=== PATIENT | female | born 1995 | race Caucasian/White ===

== ENCOUNTER 2016-07-24 14:35 | Inpatient (IN) | payer BC ==
[~2016-07-24] VITALS: Ht 161.3 cm; Wt 63.3 kg
[2016-07-24] MEDS ORDERED: BCPILLS PO (14:53)
[2016-07-24] MEDS ORDERED: ALBUT/IPRATROP 3MG/0.5MG NEB 3 ML VIAL INH STA (15:20)
[2016-07-24] MEDS ORDERED: SODIUM CHLORIDE 0.9% 1000ML 2,000 ML IV STA (15:20)
[2016-07-24] MEDS ORDERED: KETOROLAC TROMETHAMINE 30 MG/ML VIAL IV STA (15:20)
[2016-07-24] MEDS ORDERED: HYDROCODONE/HOMATROPINE SYRUP 5MG/1.5MG 5ML UDP PO STA (15:20)
[2016-07-24 16:04] LABS: BASO % 0.3 %; BASO ABS # 0.02 K/uL (0-0.2); COMPLETE YES; EOS % 0.5 %; IG% 0.3 %; LYMPH % 12.9 %; LYMPH ABS # 0.95 K/uL (1.2-3.4); MEAN CELL VOLUME 88.2 fL (80-100); MEAN CORPUSCULAR HEMOGLOBIN 29.9 pg (25-34); MEAN CORPUSCULAR HGB CONC 33.8 g/dl (32-36); MEAN PLATELET VOLUME 10.3 fL (7.4-10.4); MONO % 12.6 %; NEUT % 73.4 %; PLATELET COUNT 254 K/uL (130-400); RED BLOOD COUNT 4.42 M/uL (4.2-5.4); WHITE BLOOD COUNT 7.36 K/uL (4.8-10.8)
[2016-07-24] MEDS ORDERED: BENZ100C6 PO (16:22)
[2016-07-24] MEDS ORDERED: CLR10 PO (16:22)
[2016-07-24 16:27] LABS: BUN/CREATININE RATIO 9.6 (10-20); CALCIUM 9.4 mg/dl (8.5-10.1); CREATININE 0.75 mg/dl (0.60-1.20)
--- NOTE | 2016-07-24 16:48 | DIAGNOSTIC IMAGING REPORT ---
CHEST ONE VIEW PORTABLE CLINICAL HISTORY: Cough. Rib pain. COMPARISON STUDY: None FINDINGS: The heart is normal in size. There are left lower lobe airspace opacities which in the proper clinical setting are consistent with pneumonia. There is no pneumothorax. There are no pleural effusions.[ IMPRESSION: 1. Left lower lobe airspace opacities. In the proper clinical setting, this is consistent with a pneumonia. Clinical and radiographic follow-up is recommended. Electronically signed by: Slade Phillips M.D. 07/24/2016 4:47 PM Dictated Date/Time: 07/24/2016 4:46 PM
[2016-07-24 16:57] LABS: CKMB/CK RATIO 1.4 (0-3.0)
[2016-07-24] MEDS ORDERED: OPTIRAY 320 IV PRN (17:30)
--- NOTE | 2016-07-24 17:34 | DIAGNOSTIC IMAGING REPORT ---
CT ANGIOGRAM OF THE CHEST CLINICAL HISTORY: Right-sided chest pain COMPARISON STUDY: Chest x-ray dated 07/24/2016 TECHNIQUE: Following the IV administration of 98 mL of Optiray-320, CT angiogram of the thorax was performed from the thoracic inlet to the lung bases utilizing the pulmonary embolus protocol. Images are reviewed in the axial, sagittal, and coronal planes. IV contrast was administered without complication. MIP imaging was performed. CT DOSE: 183.15 mGy.cm FINDINGS: There are mildly enlarged left hilar lymph nodes, likely reactive. There is no axillary or mediastinal lymphadenopathy There was no evidence of thoracic aortic dilatation. There were no pulmonary artery filling defects to indicate acute pulmonary embolism. No pleural effusions are visualized. There is dense left lower lobe consolidation, suspicious for a pneumonia. Clinical correlation is advocated as the patient's symptoms are reportedly right-sided. Imaging subsequent to treatment is recommended in follow-up. IMPRESSION: 1. No evidence of acute pulmonary embolism 2. Dense left lower lobe pulmonary consolidation suspicious for pneumonia. Clinical correlation is advocated as the patient's symptoms are reportedly right-sided. Imaging subsequent to treatment is recommended in follow-up. 3. Mild left hilar mikaela enlargement, likely reactive Electronically signed by: Slade Phillips M.D. 07/24/2016 5:33 PM Dictated Date/Time: 07/24/2016 5:30 PM
[2016-07-24] MEDS ORDERED: CEFTRIAXONE SOD INJ 1 GM ADDVIAL IV STA (17:43)
[2016-07-24] MEDS ORDERED: AZITHROMYCIN IV 500 MG in DEXTROSE 5% 250ML 250 ML IV ONE (17:45)
--- NOTE | 2016-07-24 18:25 | EMERGENCY ROOM VISIT NOTE ---
ED Visit Note First contact with patient: 14:58 CHIEF COMPLAINT: Cough 1 month HISTORY OF PRESENT ILLNESS: Patient is an otherwise healthy 21-year-old white female who presents to the emergency department for evaluation of a cough and right rib pain. She states her symptoms started about 4 weeks ago with upper respiratory symptoms and a nonproductive cough. She reported a lot of nasal congestion. She thought she was suffering from allergies and tried Benadryl. Her symptoms improved, then worsened again about 4 days ago. She was seen at [facility] at that time. She was diagnosed with bronchitis. She was placed on a Pro-Air inhaler (with spacer), Tessalon Perles and Claritin. She states that the Tessalon has not been helping, and she has switched to using DayQuil which has been helping with her cough. She notes some relief from the inhaler. No x-ray was taken and no antibiotics were prescribed. The patient reports that she has been feeling worse since the appointment. She is subjectively felt feverish and had the chills. She has been unable to sleep at night due to her cough. She also reports several episodes of posttussive emesis, and woke today with right-sided rib pain underneath her right breast that is worse with coughing or deep breathing. She rates her discomfort an 8/10. She does not feel short of breath, but does feel a little bit dizzy and notes palpitations with coughing fits or when she is very active. She does not smoke, has not traveled recently and does use an oral contraceptive for PCOS. There is no known personal or family history of DVT or PE. REVIEW OF SYSTEMS: Review of systems as per HPI. All other systems reviewed were negative. 10 systems reviewed. PMH: Electronic medical records are reviewed and summarized as above/below. See Problem List. SOCIAL HISTORY: Patient is a college from [place] who lives locally with roommates. Does not smoke, drink alcohol socially. PHYSICAL EXAM: Vital Signs: Reviewed Nurse's notes. In triage was 126 beats per minute, in the room it was in the upper 90s to low 100s. Oxygen saturation is 97% on room air. CONSTITUTIONAL: Patient is a well-appearing 21-year-old white female who is awake and alert and in mild distress due to her cough and pain. EYES: Pupils equal, round, reactive to light and accommodation. EOMs intact without nystagmus. Sclera are anicteric. ENT: Tympanic membranes intact, with normal landmarks. External canals are clear. Oral and nasopharynx are clear. Mucous membranes are moist, no lesions , tongue and gums appear normal. NECK: Supple without lymphadenopathy. No thyromegaly. No meningeal signs. Full active range of motion without discomfort. CARDIOVASCULAR: Tachycardic rate and rhythm, with normal S1 and S2, no murmur appreciated. No JVD. Peripheral pulses easy to palpable. RESPIRATORY: Poor inspiratory efforts due to pain, but breath sounds are equal and clear without adventitious sounds. No accessory muscle use or retractions. She does have reproducible tenderness to palpation along the right costal margin. GI: Bowel sounds are present. Abdomen is soft, nontender, nondistended. No organomegaly. No pulsatile masses. No guarding or rebound. MUSCULOSKELETAL: Full range of motion of extremities x 4 with good strength. No cyanosis, edema, joint tenderness or swelling. No deformity. INTEGUMENTARY: No lesions or rash, normal skin turgor. NEUROLOGICAL: Alert, oriented, and cooperative. Cranial nerves, sensation and strength grossly intact. Pupils round, equal, and react to light, EOMs are full. LYMPH: No lymphadenopathy. EMERGENCY DEPARTMENT COURSE: The patient was seen and assessed as above. Old records were reviewed. IV lock was initiated and laboratory studies were collected including CBC with differential, BMP, yrpxr-dc-egla troponin and d- dimer. Urine dip and urine test were performed and were negative. EKG was performed which noted normal sinus rhythm at 91 beats per minute, biatrial enlargement, no ectopy or acute ischemic changes. There are no old EKGs available for review. Patient was given a DuoNeb treatment, hydrated with normal saline solution and medicated with Toradol 30 mg IV and Hycodan 10 mL's orally. Patient's usubu-[id number] d-dimer was 1005, atyxh-ol-ijea troponin was 0.33. Two- view chest had been ordered, but had not been performed yet, therefore this was canceled and a stat portable chest x-ray was obtained. Findings noted left lower lobe airspace opacities, possibly consistent with pneumonia. Blood cultures 2 were ordered. Patient was given azithromycin 500 mg and Rocephin 1 g IV. Given the elevated d-dimer, a CTA of the chest was ordered to evaluate for PE. The remainder of the patient's laboratory studies revealed a normal white count of 7300, H&H 13 and 39, platelet count 254,000. CK and CK-MB were normal. Lab troponin also was elevated at 0.433. Coags were unremarkable. CTA of the chest again demonstrated tenths left lower lobe consolidation suspicious for pneumonia. There is no evidence for pulmonary embolus. All laboratory and diagnostic imaging studies were reviewed with Dr. An. The patient remained afebrile and other than mildly tachycardic, was hemodynamically stable while in the emergency department. Temperature was rechecked by ny and was 37.0C orally. All laboratory and diagnostic imaging studies were reviewed with the patient at length. Further care and admission/ observation to the hospital was advised due to the pneumonia and elevated troponin. Patient was in agreement. She was discussed with Dr. Hodge with the [facility] for further care and management. Differential diagnoses entertained include acute myocardial infarction, acute coronary syndrome, myocarditis, pericarditis, pericardial effusions, bronchitis , pulmonary embolism, pneumonia, pneumothorax, cardiomyopathy, asthma exacerbation, musculoskeletal, anxiety, costochondritis, among others. CHEST ONE VIEW PORTABLE CLINICAL HISTORY: Cough. Rib pain. COMPARISON STUDY: None FINDINGS: The heart is normal in size. There are left lower lobe airspace opacities which in the proper clinical setting are consistent with pneumonia. There is no pneumothorax. There are no pleural effusions.[ IMPRESSION: 1. Left lower lobe airspace opacities. In the proper clinical setting, this is consistent with a pneumonia. Clinical and radiographic follow-up is recommended. CT ANGIOGRAM OF THE CHEST CLINICAL HISTORY: Right-sided chest pain COMPARISON STUDY: Chest x-ray dated 07/24/2016 TECHNIQUE: Following the IV administration of 98 mL of Optiray-320, CT angiogram of the thorax was performed from the thoracic inlet to the lung bases utilizing the pulmonary embolus protocol. Images are reviewed in the axial, sagittal, and coronal planes. IV contrast was administered without complication. MIP imaging was performed. CT DOSE: 183.15 mGy.cm FINDINGS: There are mildly enlarged left hilar lymph nodes, likely reactive. There is no axillary or mediastinal lymphadenopathy There was no evidence of thoracic aortic dilatation. There were no pulmonary artery filling defects to indicate acute pulmonary embolism. No pleural effusions are visualized. There is dense left lower lobe consolidation, suspicious for a pneumonia. Clinical correlation is advocated as the patient's symptoms are reportedly right-sided. Imaging subsequent to treatment is recommended in follow-up. IMPRESSION: 1. No evidence of acute pulmonary embolism 2. Dense left lower lobe pulmonary consolidation suspicious for pneumonia. Clinical correlation is advocated as the patient's symptoms are reportedly right-sided. Imaging subsequent to treatment is recommended in follow-up. 3. Mild left hilar mikaela enlargement, likely reactive Problem List Medical Problems: (1) PCOS (polycystic ovarian syndrome) Status: Chronic Current/Historical Medications Scheduled Control Pills ( Control Pills), 1 TAB PO DAILY Loratadine (Claritin), 10 MG PO DAILY Scheduled PRN Benzonatate (Tessalon Perles), 100-200 MG PO TID PRN for Cough Allergies Coded Allergies: Clindamycin (Unverified Allergy, Mild, RASH, 07/24/16) LIGHT RASH ON SKIN Vital Signs Date Time Temp Pulse Resp B/P Pulse Ox O2 Delivery O2 Flow Rate FiO2 07/24/16 17:27 104 18 119/79 96 07/24/16 16:08 91 07/24/16 15:21 98 16 120/79 98 Room Air 07/24/16 14:45 37.2 126 20 123/78 97 Room Air Laboratory Results 07/24/16 15:50 Red Blood Count 4.42, Mean Corpuscular Volume 88.2, Mean Corpuscular Hemoglobin 29.9, Mean Corpuscular Hemoglobin Concent 33.8, Mean Platelet Volume 10.3, Neutrophils (%) (Auto) 73.4, Lymphocytes (%) (Auto) 12.9, Monocytes (%) (Auto) 12.6, Eosinophils (%) (Auto) 0.5, Basophils (%) (Auto) 0.3, Neutrophils # (Auto ) 5.40, Lymphocytes # (Auto) 0.95, Monocytes # (Auto) 0.93, Eosinophils # (Auto ) 0.04, Basophils # (Auto) 0.02 07/24/16 15:50 Test 07/24/16 15:50 07/24/16 15:58 07/24/16 16:00 07/24/16 18:00 White Blood Count 7.36 K/uL (4.8-10.8) Red Blood Count 4.42 M/uL (4.2-5.4) Hemoglobin 13.2 g/dL (12.0-16.0) Hematocrit 39.0 % (37-47) Mean Corpuscular Volume 88.2 fL (80-100) Mean Corpuscular Hemoglobin 29.9 pg (25-34) Mean Corpuscular Hemoglobin Concent 33.8 g/dl (32-36) Platelet Count 254 K/uL (130-400) Mean Platelet Volume 10.3 fL (7.4-10.4) Neutrophils (%) (Auto) 73.4 % Lymphocytes (%) (Auto) 12.9 % Monocytes (%) (Auto) 12.6 % Eosinophils (%) (Auto) 0.5 % Basophils (%) (Auto) 0.3 % Neutrophils # (Auto) 5.40 K/uL (1.4-6.5) Lymphocytes # (Auto) 0.95 K/uL (1.2-3.4) Monocytes # (Auto) 0.93 K/uL (0.11-0.59) Eosinophils # (Auto) 0.04 K/uL (0-0.5) Basophils # (Auto) 0.02 K/uL (0-0.2) RDW Standard Deviation 40.4 fL (36.4-46.3) RDW Coefficient of Variation 12.4 % (11.5-14.5) Immature Granulocyte % (Auto) 0.3 % Immature Granulocyte # (Auto) 0.02 K/uL (0.00-0.02) Anion Gap 10.0 mmol/L (3-11) Est Creatinine Clear Calc Drug Dose 97.3 ml/min Estimated GFR () 131.1 Estimated GFR (Non- 113.1 BUN/Creatinine Ratio 9.6 (10-20) Calcium Level 9.4 mg/dl (8.5-10.1) Total Creatine Kinase 78 U/L (26-192) Creatine Kinase MB 1.1 ng/ml (0.5-3.6) Creatine Kinase MB Ratio 1.4 (0-3.0) Troponin I 0.433 ng/ml (0-0.045) Chemistry Specimen Hemolysis Bedside D-Dimer > 450 ng/mlFEU (0-450) Bedside Troponin I 0.330 ng/ml (0-0.045) Urine Test NEG (NEG) Prothrombin Time 9.9 SECONDS (9.0-12.0) Prothromb Time International Ratio 0.9 (0.9-1.1) Activated Partial Thromboplast Time 29.2 SECONDS (21.0-31.0) Partial Thromboplastin Ratio 1.1 Medications Administered Medications (Trade) Dose Ordered Sig/Harinder Route Start Time Stop Time Status Last Admin Dose Admin Albuterol/ Ipratropium (Duoneb) 3 ml NOW STAT INH 07/24/16 15:20 07/24/16 15:23 DC 07/24/16 16:03 3 ML Ketorolac Tromethamine 30 mg 30 mg NOW STAT IV 07/24/16 15:20 07/24/16 15:23 DC 07/24/16 16:43 30 MG Sodium Chloride (Nss 1000ml) 2,000 ml @ 999 mls/hr Q2H1M STAT IV 07/24/16 15:20 07/24/16 17:20 DC 07/24/16 16:43 999 MLS/HR Hydrocodone Bit/ Homatropine Methylb (Hycodan Syrup) 10 ml NOW STAT PO 07/24/16 15:20 07/24/16 15:23 DC 07/24/16 16:04 10 ML Ceftriaxone Sodium 1 gm 1 gm NOW STAT IV 07/24/16 17:43 07/24/16 17:44 DC 07/24/16 18:09 1 GM Azithromycin/ Dextrose (Zithromax IV/D5 250ml) 255 ml @ 125 mls/hr ONE ONCE IV 07/24/16 17:45 07/24/16 19:47 DC 07/24/16 17:45 125 MLS/HR Departure Information Impression Primary Impression: Pneumonia Additional Impression: Elevated troponin Dispostion Being Evaluated By Hospitalist Referrals No Doctor, Assigned (PCP) Patient Instructions [facility] Problem Qualifiers Primary Impression: Pneumonia Pneumonia type: due to unspecified organism Laterality: left Lung location : lower lobe of lung Qualified Codes: J18.1 - Lobar pneumonia, unspecified organism
[2016-07-24 18:30] LABS: INR 0.9 (0.9-1.1); PARTIAL THROMBOPLASTIN RATIO 1.1; PROTHROMBIN TIME (PATIENT) 9.9 SECONDS (9.0-12.0)
[2016-07-24] MEDS ORDERED: ALUMINUM/MAGNESIUM/SIMETH (MAALOX MAX) 30 ML UDC PO PRN (18:45)
[2016-07-24] MEDS ORDERED: MAGNESIUM HYDROXIDE SUSP 30 ML UDC PO PRN (18:45)
[2016-07-24] MEDS ORDERED: POLYETHYLENE (MIRALAX) 17 GM PACK PO PRN (18:45)
[2016-07-24] MEDS ORDERED: ONDANSETRON INJ 2 MG/ML 2 ML VIAL IV PRN (18:45)
[2016-07-24] MEDS ORDERED: ALBUT/IPRATROP 3MG/0.5MG NEB 3 ML VIAL INH PRN (18:45)
[2016-07-24] MEDS ORDERED: BENZONATATE 100MG CAP PO PRN (18:45)
[2016-07-24 20:01] VITALS: BP 112/76; PULSE 89; TEMP 36.7; O2SAT 98; Ht 161.3 cm; Wt 63.3 kg
--- NOTE | 2016-07-24 22:18 | History and Physical ---
History & Physical Date & Time of Service: July 24, 2016 at 22:13 Chief Complaint: Elevated Troponin, Pneumonia Primary Care Physician: [facility] Past Medical/Surgical History Medical Problems: (1) PCOS (polycystic ovarian syndrome) Status: Chronic Social History Smoking Status: Never Smoker Allergies Coded Allergies: Clindamycin (Unverified Allergy, Mild, RASH, 07/24/16) LIGHT RASH ON SKIN Home Medications Scheduled Control Pills ( Control Pills), 1 TAB PO DAILY Loratadine (Claritin), 10 MG PO DAILY Scheduled PRN Benzonatate (Tessalon Perles), 100-200 MG PO TID PRN for Cough Physical Exam Vital Signs Date Time Temp Pulse Resp B/P Pulse Ox O2 Delivery O2 Flow Rate FiO2 07/24/16 20:01 36.7 89 16 112/76 98 Room Air 07/24/16 20:00 Room Air 07/24/16 19:51 95 16 101/77 96 07/24/16 17:27 104 18 119/79 96 07/24/16 16:08 91 07/24/16 15:21 98 16 120/79 98 Room Air 07/24/16 14:45 37.2 126 20 123/78 97 Room Air Diagnostics Laboratory Results Results Past 24 Hours Test 07/24/16 15:50 07/24/16 15:58 07/24/16 16:00 07/24/16 18:00 Range/Units White Blood Count 7.36 4.8-10.8 K/uL Red Blood Count 4.42 4.2-5.4 M/uL Hemoglobin 13.2 12.0-16.0 g/dL Hematocrit 39.0 37-47 % Mean Corpuscular Volume 88.2 80-100 fL Mean Corpuscular Hemoglobin 29.9 25-34 pg Mean Corpuscular Hemoglobin Concent 33.8 32-36 g/dl Platelet Count 254 130-400 K/uL Mean Platelet Volume 10.3 7.4-10.4 fL Neutrophils (%) (Auto) 73.4 % Lymphocytes (%) (Auto) 12.9 % Monocytes (%) (Auto) 12.6 % Eosinophils (%) (Auto) 0.5 % Basophils (%) (Auto) 0.3 % Neutrophils # (Auto) 5.40 1.4-6.5 K/uL Lymphocytes # (Auto) 0.95 1.2-3.4 K/uL Monocytes # (Auto) 0.93 0.11-0.59 K/uL Eosinophils # (Auto) 0.04 0-0.5 K/uL Basophils # (Auto) 0.02 0-0.2 K/uL RDW Standard Deviation 40.4 36.4-46.3 fL RDW Coefficient of Variation 12.4 11.5-14.5 % Immature Granulocyte % (Auto) 0.3 % Immature Granulocyte # (Auto) 0.02 0.00-0.02 K/uL Sodium Level 138 136-145 mmol/L Potassium Level 4.0 3.5-5.1 mmol/L Chloride Level 102 98-107 mmol/L Carbon Dioxide Level 26 21-32 mmol/L Anion Gap 10.0 3-11 mmol/L Blood Urea Nitrogen 7 7-18 mg/dl Creatinine 0.75 0.60-1.20 mg/dl Est Creatinine Clear Calc Drug Dose 97.3 ml/min Estimated GFR () 131.1 Estimated GFR (Non- 113.1 BUN/Creatinine Ratio 9.6 10-20 Random Glucose 98 70-99 mg/dl Calcium Level 9.4 8.5-10.1 mg/dl Total Creatine Kinase 78 26-192 U/L Creatine Kinase MB 1.1 0.5-3.6 ng/ml Creatine Kinase MB Ratio 1.4 0-3.0 Troponin I 0.433 0-0.045 ng/ml Chemistry Specimen Hemolysis Bedside D-Dimer > 450 0-450 ng/mlFEU Bedside Troponin I 0.330 0-0.045 ng/ml Urine Test NEG NEG Prothrombin Time 9.9 9.0-12.0 SECONDS Prothromb Time International Ratio 0.9 0.9-1.1 Activated Partial Thromboplast Time 29.2 21.0-31.0 SECONDS Partial Thromboplastin Ratio 1.1 Microbiology Results 07/24/16 Blood Culture, Received Pending 07/24/16 Blood Culture, Received Pending Impression Assessment and Plan admit #[id number] Advanced Directives Existing Living Will: No Existing Power of Ornament Maker Hand: No VTE Prophylaxis VTE Risk Assessment Done? Y/N: Yes Risk Level: Low
[2016-07-24] MEDS: SODIUM CHLOR 0.45% + 20MEQ KCL 1,000 ML IV SCH (22:30)
[2016-07-24] MEDS ORDERED: HOME MED ADMINISTRATION ONE (22:30)
[2016-07-24] MEDS ORDERED: COUGH DROP (SUGAR FREE) LOZ 24 LOZ/1 BOX PO PRN (23:45)
[2016-07-24] MEDS ORDERED: DEXTROMETHORPHAN POLYMR COMPLX 30 MG/5 ML UDP PO PRN (23:45)
[2016-07-24 23:47] VITALS: BP 113/72; PULSE 97; TEMP 36.5; O2SAT 95
[2016-07-24] MEDS: ACETAMINOPHEN 325 MG TAB PO PRN (23:59)
[2016-07-25] VITALS (8 sets, daily range): BP systolic 104–114; BP diastolic 69–76; PULSE 78–104; TEMP 36.6–37.2; O2SAT 95–100
[2016-07-25] MEDS ORDERED: DEXTROMETHORPHAN POLYMR COMPLX 30 MG/5 ML UDP PO PRN (00:30)
--- NOTE | 2016-07-25 04:43 | HISTORY & PHYSICAL EXAMINATION ---
DATE OF ADMISSION: 07/24/2016 CHIEF COMPLAINT: Cough. HISTORY OF PRESENT ILLNESS: The patient is a very pleasant 21-year-old female, who notes that she has had a cough and right rib pain for about a month; she started with upper respiratory symptoms, nonproductive cough, lot of nasal congestion and wondered if it was allergy, tried some Benadryl, symptoms continued to worsen. She was seen at [facility]. They diagnosed her as having bronchitis; gave her an inhaler, Tessalon and Claritin. Tessalon has not really been helping. NyQuil did help with cough some. She continued to worsen. She has had several episodes of posttussive emesis. She had a feverish feeling. She notes she does not have a thermometer, so she did not actually take her temperature, but felt like she had a fever as well as some chills and sweats. She has not really been able to sleep and started with worsening chest discomfort especially under the right side was worse on deep breathing, so she came to the ER for further evaluation. Here, she was worked up for infection and PE. Fortunately she does not have a PE, but she did have rather dense left-sided pneumonia as well as surprisingly elevated troponin, so we were asked to see her for further evaluation and treatment. REVIEW OF SYSTEMS: Negative for any chest pain outside of the right-sided pain with deep breathing. She has no substernal pain, no pain that is worse lying back in bed or sitting up. Review of systems is otherwise negative except for as above. PAST MEDICAL HISTORY: PCOS. She also notes a degree of chronic back pain. PAST SURGICAL HISTORY: None. SOCIAL HISTORY: She is a student records specialist, working on being a school counselor. She does not smoke. She is originally from the [facility]. ALLERGIES: CLINDAMYCIN. FAMILY HISTORY: No immune deficiencies and no chronic lung disease. MEDICATIONS: Acute, being the Tessalon Perles t.i.d. p.r.n. and the Claritin 10 mg daily, chronically just being her control pills. PHYSICAL EXAMINATION: VITAL SIGNS: Temperature 37.2, pulse initially 126, respiratory rate 20, blood pressure 123/78 and 97% on room air. GENERAL: She is awake, alert, oriented x3, pleasant, in no acute distress. HEENT: Normocephalic and atraumatic. Mucous membranes are moist. CARDIOVASCULAR: Regular without rubs, murmurs or gallops. She has slowed down to 90s or maybe 80s by the time I have seen her. LUNGS: Show diminished air entry base, left. No rales, rhonchi or wheezes elsewhere, with good effort. No accessory muscle use. ABDOMEN: Soft, nondistended, nontender, no masses or organomegaly. EXTREMITIES: Show no cyanosis, clubbing or edema. No calf tenderness. SKIN: Shows no rashes, no pallor or icterus. NEUROLOGIC: Shows cranial nerves II-XII to be grossly intact. Gross motor and sensory are intact. MUSCULOSKELETAL: Yields no gross lesions. MENTAL STATE: Shows good recent and remote recall. Normal mood and affect. Good judgment and insight. LABORATORIES AND DIAGNOSTICS: Her CBC shows a white count of 7.36, hemoglobin 13.2, platelets 254. Complete basic metabolic panel with sodium 138, potassium 4, chloride 102, CO2 26, BUN 7, creatinine 0.75, calcium 9.4, glucose 98. CK total of 78 with an MB of 1.1, troponin interestingly was 0.433. D-dimer of greater than 450. PT of 9.9, INR of 0.9, PTT of 29.2. Urine test is negative. Chest x-ray; shows left lower lobe airspace opacity consistent with pneumonia. Chest CT; shows no PEs, but does show a fairly dense left-sided pneumonia that abuts her heart. Enlarged hilar lymph nodes, likely reactive. No axillary or mediastinal adenopathy. No evidence of thoracic aortic dilation. EKG is sinus rhythm. She has an RSR prime morphology in V1 and V2. No changes consistent with prior pericarditis. ASSESSMENT AND PLAN: 1. Community-acquired pneumonia; this appears to be the cause of her symptoms. Likely, she did in fact have a viral etiology before suddenly getting worse over the last few days, but at this point in time certainly it appears quite consistent with a community-acquired pneumonia. She is at low risk for nosocomial or resistant pathogens. We will continue Zithromax, Rocephin, supportive care and likely given that she is not septic and not hypoxic we will probably be able to transition her fairly quickly to oral antibiotics at home, pending further workup of the troponin. 2. Elevated troponin; she does not have pulmonary embolism. The CT scan was done to look for pulmonary embolism in light of the elevated troponin with concern on right heart strain, but there is nothing to be found. She does not have EKG changes or findings consistent with pericarditis and myocarditis, although certainly viral etiologies such as what led to her initial prodrome can do this. It is also very possible that she just has a crossover of inflammation given how much the dense pneumonia abuts the heart. I discussed the case with cardiology and given her lack of worrisome symptoms and lack of EKG findings, we agreed that it was most prudent to trend cardiac enzymes and check an echocardiogram. She has normal bilateral equal carotid upstrokes and no signs of tamponade, congestive heart failure or any other worrisome symptoms; so as long as her troponins stay stable or trends down and as long as her echocardiogram shows no worrisome findings the rest can be outpatient followup. 3. Deep venous thrombosis prophylaxis; she is overall relatively at low risk, we will utilize ambulation and we will allow her to take her control from home.
[2016-07-25] MEDS: HYDROCODONE/HOMATROPINE SYRUP 5MG/1.5MG 5ML UDP PO PRN ×4 (04:47→20:32)
[2016-07-25 07:09] LABS: BASO % 0.1 %; BASO ABS # 0.01 K/uL (0-0.2); COMPLETE YES; EOS % 1.7 %; IG% 0.3 %; LYMPH % 12.7 %; LYMPH ABS # 0.91 K/uL (1.2-3.4); MEAN CELL VOLUME 89.4 fL (80-100); MEAN CORPUSCULAR HEMOGLOBIN 30.1 pg (25-34); MEAN CORPUSCULAR HGB CONC 33.6 g/dl (32-36); MEAN PLATELET VOLUME 10.1 fL (7.4-10.4); MONO % 11.7 %; NEUT % 73.5 %; PLATELET COUNT 222 K/uL (130-400); RED BLOOD COUNT 3.69 M/uL (4.2-5.4); WHITE BLOOD COUNT 7.19 K/uL (4.8-10.8)
[2016-07-25 07:41] LABS: BUN/CREATININE RATIO 11.5 (10-20); CALCIUM 8.3 mg/dl (8.5-10.1); CREATININE 0.61 mg/dl (0.60-1.20)
[2016-07-25] MEDS: DROSPIRENONE-ETHINYL ESTRADIOL 1 TAB TAB PO SCH (08:07)
[2016-07-25] MEDS: LORATADINE 10 MG TAB PO SCH (08:07)
[2016-07-25] MEDS: ACETAMINOPHEN 325 MG TAB PO PRN (08:08)
[2016-07-25] MEDS: SODIUM CHLOR 0.45% + 20MEQ KCL 1,000 ML IV SCH ×2 (08:57→18:01)
[2016-07-25] MEDS ORDERED: DROSPIRENONE-ETHINYL ESTRADIOL 1 TAB TAB PO SCH (09:00)
[2016-07-25 09:26] LABS: CKMB/CK RATIO 9.4 (0-3.0)
[2016-07-25] MEDS ORDERED: COLCHICINE 0.6 MG TAB PO ONE (10:15)
--- NOTE | 2016-07-25 10:25 | Cardiology Consultation ---
Cardiology Consultation Date of Consultation: July 25, 2016. Requesting Physician: Dr. Sarmiento Reason for Consultation: Chest pain, elevated cardiac enzymes Pt evaluation today including: conversation w/ patient, conversation w/ family , physical exam, lab review, review of studies, review of inpatient medication list, conversation w/ attending History of Present Illness This is a very pleasant 21-year-old woman who presented on 07/24/2016 with right -sided chest discomfort and a persistent cough. She describes a cough being present for 4-6 weeks, nonproductive, felt to be a viral bronchitis in the past. She is therefore not been on antibiotic therapy. She developed right sided chest discomfort on 07/24/2016 in the morning, she describes it as being exacerbated by the coughing, being pleuritic in that it hurts when she takes a deep breath but also hurts when she moves. It is not exertional, prior to yesterday morning she never had chest discomfort. She has not had lightheadedness, dizziness or palpitations. In the emergency room she had some abnormal tests which included a CT scan showing a left sided pneumonia, which also seems visible on her chest x-ray. The CT scan was negative for pulmonary embolism. She also had cardiac enzyme abnormalities, her troponin on arrival to emergency room was 0.43, however around midnight it was 1.84 and this morning is 5.44. Her electrocardiogram on arrival has some minor abnormalities in the precordial leads which can be normal for her age, this morning the electric cart a gram looks slightly different. There may be a little bit of inferior ST elevation which also can be normal for age. At the time of my evaluation she has continued to have a cough, and continued to have the right sided chest discomfort exacerbated by the cough and movement. The cough remains nonproductive. Past Medical/Surgical History No significant past medical history, no prior cardiac history Social History Smoking Status: Never Smoker History of Alcohol Use: Yes (liquor, beer, wine 1-3 times /week) Review of Systems Constitutional: No fever, No weakness, No weight loss Respiratory: + cough, + see HPI, No dyspnea on exertion, No shortness of breath , No sputum, No wheezing Cardiac: + chest pain (right sided, related to movement and cough), + see HPI, No PND, No edema, No orthopnea, No palpitations Abdomen: No GI bleeding, No diarrhea, No nausea, No pain, No vomiting Female : No problem reported Neurologic: No balance problems, No numbness/tingling, No paralysis, No weakness Heme: No abnormal bleeding/bruising, No clotting problems Endo: No fatigue Skin: No problem reported All Other Systems: Reviewed and Negative Allergies Coded Allergies: Clindamycin (Unverified Allergy, Mild, RASH, 07/24/16) LIGHT RASH ON SKIN Medications Current Inpatient Medications Medications (Trade) Dose Ordered Sig/Harinder Route Start Time Stop Time Status Last Admin Dose Admin Ioversol (Optiray 320) 98 ml UD PRN IV 07/24/16 17:30 07/28/16 17:29 Acetaminophen (Tylenol Tab) 650 mg Q4H PRN PO 07/24/16 18:45 08/23/16 18:44 07/25/16 08:08 650 MG Al Hydrox/Mg Hydrox/Simethicone (Maalox Max Susp) 15 ml Q4H PRN PO 07/24/16 18:45 08/23/16 18:44 Magnesium Hydroxide (Milk Of Magnesia Susp) 30 ml Q12H PRN PO 07/24/16 18:45 08/23/16 18:44 Ondansetron HCl (Zofran Inj) 4 mg Q6H PRN IV 07/24/16 18:45 08/23/16 18:44 Polyethylene 17 gm 17 gm DAILY PRN PO 07/24/16 18:45 08/23/16 18:44 Azithromycin 250 mg/Dextrose 252.5 ml @ 125 mls/hr Q24H IV 07/25/16 18:00 07/30/16 20:02 Ceftriaxone Sodium/Dextrose (Rocephin Inj/D5 50ml) 60 ml @ 100 mls/hr Q24H IV 07/25/16 17:00 07/30/16 17:35 Benzonatate (Tessalon Perles Cap) 100 mg TID PRN PO 07/24/16 18:45 08/23/16 18:44 Loratadine (Claritin Tab) 10 mg DAILY PO 07/25/16 09:00 08/24/16 08:59 07/25/16 08:07 10 MG Albuterol/ Ipratropium (Duoneb) 3 ml Q4R PRN INH 07/24/16 18:45 08/23/16 18:44 Non-Formulary Medication 1 ea 1 ea DAILY PO 07/25/16 09:00 08/24/16 08:59 UNV Potassium Chloride/Sodium Chloride (1/2 Nss + 20meq KCl 1000ml) 1,000 ml @ 100 mls/hr Q10H IV 07/24/16 22:30 08/23/16 22:29 07/25/16 08:57 100 MLS/HR Menthol (Nice Lashon) 1 lashon Q1H PRN PO 07/24/16 23:45 08/23/16 23:44 Hydrocodone Bit/ Homatropine Methylb (Hycodan Syrup) 5 ml Q4H PRN PO 07/25/16 04:45 08/08/16 04:44 07/25/16 04:47 5 ML Colchicine (Colchicine Tab) 0.6 mg NOW ONCE PO 07/25/16 10:15 07/25/16 10:16 UNV Colchicine (Colchicine Tab) 0.6 mg BID PO 07/25/16 21:00 08/24/16 20:59 UNV Physical Exam Vital Signs Past 12 Hours Date Time Temp Pulse Resp B/P Pulse Ox O2 Delivery O2 Flow Rate FiO2 07/25/16 08:00 97 Room Air 07/25/16 07:48 37.2 89 18 106/73 97 Room Air 07/25/16 04:00 36.9 92 17 104/69 98 Room Air 07/25/16 04:00 Room Air 07/24/16 23:59 Room Air 07/24/16 23:47 36.5 97 17 113/72 95 Room Air Constitutional: General Apperance: heathly-appearing Level of Distress: NAD Psychiatric: Mental Status: active & alert Head: normocephalic Eyes: EOM: EOMI ENMT: normal ENT inspection, hearing grossly normal Neck: supple, no masses Lungs: Respiratory effort: no dyspnea, good air movement Auscultation: breath sounds normal, no wheezing Cardiovascular: Heart Auscultation: RRR, no murmurs, no rubs, no gallops Peripheral Pulses: Bruits: none appreciated Abdomen: Bowel Sounds: normal Inspection & Palpation: soft, no tenderness, guarding & rebound, no masses Musculoskeletal: normal strength (5/5 throughout) Extremities: no edema Neurologic: Cranial Nerves: grossly intact Sensation: grossly intact Data Laboratory Results: Last 24 Hours Test 07/24/16 15:50 07/24/16 15:58 07/24/16 16:00 07/24/16 18:00 White Blood Count 7.36 K/uL Red Blood Count 4.42 M/uL Hemoglobin 13.2 g/dL Hematocrit 39.0 % Mean Corpuscular Volume 88.2 fL Mean Corpuscular Hemoglobin 29.9 pg Mean Corpuscular Hemoglobin Concent 33.8 g/dl Platelet Count 254 K/uL Mean Platelet Volume 10.3 fL Neutrophils (%) (Auto) 73.4 % Lymphocytes (%) (Auto) 12.9 % Monocytes (%) (Auto) 12.6 % Eosinophils (%) (Auto) 0.5 % Basophils (%) (Auto) 0.3 % Neutrophils # (Auto) 5.40 K/uL Lymphocytes # (Auto) 0.95 K/uL Monocytes # (Auto) 0.93 K/uL Eosinophils # (Auto) 0.04 K/uL Basophils # (Auto) 0.02 K/uL RDW Standard Deviation 40.4 fL RDW Coefficient of Variation 12.4 % Immature Granulocyte % (Auto) 0.3 % Immature Granulocyte # (Auto) 0.02 K/uL Sodium Level 138 mmol/L Potassium Level 4.0 mmol/L Chloride Level 102 mmol/L Carbon Dioxide Level 26 mmol/L Anion Gap 10.0 mmol/L Blood Urea Nitrogen 7 mg/dl Creatinine 0.75 mg/dl Est Creatinine Clear Calc Drug Dose 97.3 ml/min Estimated GFR () 131.1 Estimated GFR (Non- 113.1 BUN/Creatinine Ratio 9.6 Random Glucose 98 mg/dl Calcium Level 9.4 mg/dl Total Creatine Kinase 78 U/L Creatine Kinase MB 1.1 ng/ml Creatine Kinase MB Ratio 1.4 Troponin I 0.433 ng/ml Chemistry Specimen Hemolysis Bedside D-Dimer > 450 ng/mlFEU Bedside Troponin I 0.330 ng/ml Urine Test NEG Prothrombin Time 9.9 SECONDS Prothromb Time International Ratio 0.9 Activated Partial Thromboplast Time 29.2 SECONDS Partial Thromboplastin Ratio 1.1 Test 07/25/16 00:40 07/25/16 06:08 07/25/16 08:38 Total Creatine Kinase 84 U/L 163 U/L Creatine Kinase MB 5.0 ng/ml 15.4 ng/ml Creatine Kinase MB Ratio 6.0 9.4 Troponin I 1.840 ng/ml 5.440 ng/ml White Blood Count 7.19 K/uL Red Blood Count 3.69 M/uL Hemoglobin 11.1 g/dL Hematocrit 33.0 % Mean Corpuscular Volume 89.4 fL Mean Corpuscular Hemoglobin 30.1 pg Mean Corpuscular Hemoglobin Concent 33.6 g/dl Platelet Count 222 K/uL Mean Platelet Volume 10.1 fL Neutrophils (%) (Auto) 73.5 % Lymphocytes (%) (Auto) 12.7 % Monocytes (%) (Auto) 11.7 % Eosinophils (%) (Auto) 1.7 % Basophils (%) (Auto) 0.1 % Neutrophils # (Auto) 5.29 K/uL Lymphocytes # (Auto) 0.91 K/uL Monocytes # (Auto) 0.84 K/uL Eosinophils # (Auto) 0.12 K/uL Basophils # (Auto) 0.01 K/uL RDW Standard Deviation 41.4 fL RDW Coefficient of Variation 12.7 % Immature Granulocyte % (Auto) 0.3 % Immature Granulocyte # (Auto) 0.02 K/uL Sodium Level 135 mmol/L Potassium Level 4.0 mmol/L Chloride Level 100 mmol/L Carbon Dioxide Level 27 mmol/L Anion Gap 8.0 mmol/L Blood Urea Nitrogen 7 mg/dl Creatinine 0.61 mg/dl Est Creatinine Clear Calc Drug Dose 122.3 ml/min Estimated GFR () 149.1 Estimated GFR (Non- 128.7 BUN/Creatinine Ratio 11.5 Random Glucose 95 mg/dl Calcium Level 8.3 mg/dl Imaging: I reviewed the x-ray and it does seem to show a left sided consolidation. This is also seen on the CT scan. This does not appear to communicate with the pericardial space. An echocardiogram done today has not been officially read, however on preliminary review the ejection fraction seems normal without a pericardial effusion. EKG: Sinus rhythm, her initial electrocardiogram shows some minor T changes in the precordium that these be normal for age, perhaps slight J-point elevation inferiorly which again can be normal for age. Today the T-wave abnormalities are little less pronounced, the J-point elevation appears unchanged. Telemetry reviewed: Sinus rhythm, no abnormalities Assessment & Plan #1. Chest discomfort: The chest discomfort is very atypical for cardiac pain, it is right sided and her pneumonia is left sided. It may well be musculoskeletal from the coughing, on the other hand it did occur coincidentally with a rising troponin. It could be referred pain from myocarditis or pericarditis. #2. Elevated troponin: Her troponin rising since admission suggests that there is some ongoing cardiac inflammatory process which started recently, not with her cough 4-6 weeks ago. It may be that the chest discomfort is due to myocarditis or pericarditis although it is not clearly seen on electrocardiography. I think it is worth treating with colchicine, to see at least if it helps with her symptomatology in case it is referred pain. I will start that today. With no echocardiographic changes I'm going to hold off on any other medications, she has no evidence of cardiomyopathy. #3. Pneumonia: It is possible that she has had this pneumonia for some time although it seems a little bit unusual. I don't see how this can be connected to her cardiac enzyme rise, and less it is viral and associate with a viral myocarditis as well. In any case that would not alter the cardiac treatment. Thank you for allowing me to participate in her care.
--- NOTE | 2016-07-25 11:17 | Family Medicine Progress Note ---
Progress Note Date of Service July 25, 2016. Subjective Pt evaluation today including: conversation w/ patient, physical exam, chart review, lab review Pain: complains of pain along the rib below her right breast PO Intake: good Voiding: no voiding problems 21-year-old female with no significant past medical history presented with complaints of a cough and right-sided rib pain that started about a month ago. Was treated as a bronchitis as an outpatient . Chest x-ray and chest CT revealed a left-sided lower lobe pneumonia and she was also noted to have an elevated troponin though she did not have significant changes on her EKG. Continues to complain of pain along her right under the right breast especially with deep breathing and coughing. Denied any fevers or chills. Coughing has been mostly nonproductive. Denied any international travel, tick bites but had been diagnosed with bronchitis a few weeks ago and she stated that her roommate also had similar symptoms. Constitutional: No chills, No fever Eyes: No worsening of vision ENT: No hearing loss Respiratory: + cough, + shortness of breath (due to the pain . Shallow breathing), + sputum (scant), No wheezing Cardiovascular: + chest pain (under right breast) Abdomen: No diarrhea, No nausea, No pain, No vomiting Musculoskeletal: No joint pain Female : No dysuria Neurologic: No memory loss, No paralysis Psychiatric: No depression symptoms Heme: No abnormal bleeding/bruising Endo: No fatigue Skin: No rash Medications Current Inpatient Medications Medications (Trade) Dose Ordered Sig/Harinder Route Start Time Stop Time Status Last Admin Dose Admin Ioversol (Optiray 320) 98 ml UD PRN IV 07/24/16 17:30 07/28/16 17:29 Acetaminophen (Tylenol Tab) 650 mg Q4H PRN PO 07/24/16 18:45 08/23/16 18:44 07/25/16 08:08 650 MG Al Hydrox/Mg Hydrox/Simethicone (Maalox Max Susp) 15 ml Q4H PRN PO 07/24/16 18:45 08/23/16 18:44 Magnesium Hydroxide (Milk Of Magnesia Susp) 30 ml Q12H PRN PO 07/24/16 18:45 08/23/16 18:44 Ondansetron HCl (Zofran Inj) 4 mg Q6H PRN IV 07/24/16 18:45 08/23/16 18:44 Polyethylene 17 gm 17 gm DAILY PRN PO 07/24/16 18:45 08/23/16 18:44 Azithromycin 250 mg/Dextrose 252.5 ml @ 125 mls/hr Q24H IV 07/25/16 18:00 07/30/16 20:02 Ceftriaxone Sodium/Dextrose (Rocephin Inj/D5 50ml) 60 ml @ 100 mls/hr Q24H IV 07/25/16 17:00 07/30/16 17:35 07/25/16 16:21 100 MLS/HR Benzonatate (Tessalon Perles Cap) 100 mg TID PRN PO 07/24/16 18:45 08/23/16 18:44 Loratadine (Claritin Tab) 10 mg DAILY PO 07/25/16 09:00 08/24/16 08:59 07/25/16 08:07 10 MG Albuterol/ Ipratropium (Duoneb) 3 ml Q4R PRN INH 07/24/16 18:45 08/23/16 18:44 Non-Formulary Medication 1 ea 1 ea DAILY PO 07/25/16 09:00 08/24/16 08:59 UNV Potassium Chloride/Sodium Chloride (1/2 Nss + 20meq KCl 1000ml) 1,000 ml @ 100 mls/hr Q10H IV 07/24/16 22:30 08/23/16 22:29 07/25/16 08:57 100 MLS/HR Menthol (Nice Lashon) 1 lashon Q1H PRN PO 07/24/16 23:45 08/23/16 23:44 Hydrocodone Bit/ Homatropine Methylb (Hycodan Syrup) 5 ml Q4H PRN PO 07/25/16 04:45 08/08/16 04:44 07/25/16 16:19 5 ML Colchicine (Colchicine Tab) 0.6 mg BID PO 07/25/16 21:00 08/24/16 20:59 Objective Vital Signs Date Time Temp Pulse Resp B/P Pulse Ox O2 Delivery O2 Flow Rate FiO2 07/25/16 15:37 36.6 100 16 108/72 99 Room Air 07/25/16 12:20 36.7 78 20 107/76 97 Room Air 07/25/16 12:00 95 Room Air 07/25/16 08:00 97 Room Air 07/25/16 07:48 37.2 89 18 106/73 97 Room Air 07/25/16 04:00 36.9 92 17 104/69 98 Room Air 07/25/16 04:00 Room Air 07/24/16 23:59 Room Air 07/24/16 23:47 36.5 97 17 113/72 95 Room Air 07/24/16 20:01 36.7 89 16 112/76 98 Room Air 07/24/16 20:00 Room Air 07/24/16 19:51 95 16 101/77 96 07/24/16 17:27 104 18 119/79 96 Physical Exam General Appearance: WD/WN, + mild distress Eyes: normal inspection ENT: normal ENT inspection, hearing grossly normal Neck: supple Respiratory/Chest: chest non-tender, normal breath sounds, no respiratory distress, + pertinent finding (tenderness along the right 10th rib) Cardiovascular: regular rate, rhythm, + pertinent finding Abdomen: normal bowel sounds, non tender, soft Extremities: normal range of motion, non-tender, normal inspection Neurologic/Psychiatric: alert, normal mood/affect, oriented x 3 Skin: normal color, no rash Laboratory Results 07/25/16 06:08 Red Blood Count 3.69, Mean Corpuscular Volume 89.4, Mean Corpuscular Hemoglobin 30.1, Mean Corpuscular Hemoglobin Concent 33.6, Mean Platelet Volume 10.1, Neutrophils (%) (Auto) 73.5, Lymphocytes (%) (Auto) 12.7, Monocytes (%) (Auto) 11.7, Eosinophils (%) (Auto) 1.7, Basophils (%) (Auto) 0.1, Neutrophils # (Auto ) 5.29, Lymphocytes # (Auto) 0.91, Monocytes # (Auto) 0.84, Eosinophils # (Auto ) 0.12, Basophils # (Auto) 0.01 07/25/16 06:08 Test 07/24/16 18:00 07/25/16 06:08 07/25/16 08:38 07/25/16 11:25 Prothrombin Time 9.9 SECONDS (9.0-12.0) Prothromb Time International Ratio 0.9 (0.9-1.1) Activated Partial Thromboplast Time 29.2 SECONDS (21.0-31.0) Partial Thromboplastin Ratio 1.1 White Blood Count 7.19 K/uL (4.8-10.8) Red Blood Count 3.69 M/uL (4.2-5.4) Hemoglobin 11.1 g/dL (12.0-16.0) Hematocrit 33.0 % (37-47) Mean Corpuscular Volume 89.4 fL (80-100) Mean Corpuscular Hemoglobin 30.1 pg (25-34) Mean Corpuscular Hemoglobin Concent 33.6 g/dl (32-36) Platelet Count 222 K/uL (130-400) Mean Platelet Volume 10.1 fL (7.4-10.4) Neutrophils (%) (Auto) 73.5 % Lymphocytes (%) (Auto) 12.7 % Monocytes (%) (Auto) 11.7 % Eosinophils (%) (Auto) 1.7 % Basophils (%) (Auto) 0.1 % Neutrophils # (Auto) 5.29 K/uL (1.4-6.5) Lymphocytes # (Auto) 0.91 K/uL (1.2-3.4) Monocytes # (Auto) 0.84 K/uL (0.11-0.59) Eosinophils # (Auto) 0.12 K/uL (0-0.5) Basophils # (Auto) 0.01 K/uL (0-0.2) RDW Standard Deviation 41.4 fL (36.4-46.3) RDW Coefficient of Variation 12.7 % (11.5-14.5) Immature Granulocyte % (Auto) 0.3 % Immature Granulocyte # (Auto) 0.02 K/uL (0.00-0.02) Anion Gap 8.0 mmol/L (3-11) Est Creatinine Clear Calc Drug Dose 122.3 ml/min Estimated GFR () 149.1 Estimated GFR (Non- 128.7 BUN/Creatinine Ratio 11.5 (10-20) Calcium Level 8.3 mg/dl (8.5-10.1) Total Creatine Kinase 163 U/L (26-192) Creatine Kinase MB 15.4 ng/ml (0.5-3.6) Creatine Kinase MB Ratio 9.4 (0-3.0) Troponin I 5.440 ng/ml (0-0.045) Lyme Disease IgG Antibody NEG (NEG) Lyme Disease IgM Antibody NEG (NEG) Assessment and Plan 21-year-old female with no significant past medical history presented with complaints of a cough and right-sided rib pain that started about a month ago. Was treated as a bronchitis as an outpatient . Chest x-ray and chest CT revealed a left-sided lower lobe pneumonia and she was also noted to have an elevated troponin though she did not have significant changes on her EKG. Community-acquired pneumonia: - CXR: 07/24. Left lower lobe airspace opacities. In the proper clinical setting, this is consistent with a pneumonia - Chest CT:07/24: IMPRESSION: 1. No evidence of acute pulmonary embolism 2. Dense left lower lobe pulmonary consolidation suspicious for pneumonia. 3. Mild left hilar mikaela enlargement, likely reactive - Continue Rocephin and azithromycin - Cough suppression with Hycodan, Tessalon Perles Elevated troponins:? Myocarditis/pericarditis though no EKG changes - Troponin on presentation 0.433-->1.84-->5.4 - Echo : * 1. Normal LV size and wall thickness. * 2. Normal LV systolic function. LVEF 60-65%. No regional wall motion abnormalities. * 3. Normal RV size and function. * 4. No significant valvular abnormalities. - Cardiology consultation- appreciate input - Trend troponins - Lyme serology negative - Started on colchicine Right-sided rib pain: Referred pain versus costochondritis - Pain control with hydromorphone as needed DVT prophylaxis: Lovenox Full code Disposition: Monitor in telemetry Discharge planning: home Resident Tracking Resident Involvement: Resident Care Provided Care Provided: Adult Hospital Medicine Reviewed: Pt Seen/Exam by Me History Resident Physician Supervision Note: I interviewed and examined the patient. Discussed with Dr. Hung and agree with findings and plan as documented in the note. Any exceptions or clarifications are listed here: Pt still coughing, still with right inferior rib pain with any movement or with cough and deep inspiration. No other chest pain ECG this AM is improved from previous, no longer with TWI1 in V2-3. Vitals reviewed NAD, AAOx3 RRR no mgr +decreased BS at left lower lung field but otherwise CTAB Abd soft NT ND +BS Ext no edema SKin no rashes 21 yo female with LLL CAP, right rib pain MSK in nature from coughing. Also with elevated troponin most likely secondary to myocarditis. Continue rocephin and azithro, antitussives which also help with pain ECHO reviewed and case d/w Cardiology -follow troponin until peaks, colchicine for treatment Documented By: Stacey Sarmiento
[2016-07-25] MEDS ORDERED: ENOXAPARIN 40 MG/0.4 ML SYR SQ ONE (12:00)
--- NOTE | 2016-07-25 13:25 | ECHOCARDIOGRAM REPORT ---
*NOTICE TO RECEIVING CONSTITUTION PARTY AGENCY This information is strictly Confidential and protected under [place] law. [place] law prohibits you from making any further disclosure of this information unless further disclosure is expressly permitted by the written consent of the person to whom it pertains or is authorized by law. A general authorization for the release of medical or other information is not sufficient for this purpose. Hospital accepts no responsibility if the information is made available to any other person, INCLUDING THE PATIENT. Interpretation Summary * Name: KULDEEP MACHADO Study Date: 07/25/2016 06:40 AM BP: 104/69 mmHg * Patient Location: [facility] [place] HR: 92 * : 1995 (M/d/yyyy) Gender: Female Height: 63 in * Age: 21 yrs Ethnicity: CA Weight: 136 lb * Ordering Physician: Russell Hodge * Performed By: Stefanie Coe * * Reason For Study: ELEVATED TROP * BSA: 1.6 m2 * -- Conclusions -- * 1. Normal LV size and wall thickness. * 2. Normal LV systolic function. LVEF 60-65%. No regional wall motion abnormalities. * 3. Normal RV size and function. * 4. No significant valvular abnormalities. * 5. No prior studies for comparison. Procedure Details * A complete two-dimensional transthoracic echocardiogram was performed (2D, M-mode, Doppler and color flow Doppler). Left Ventricle * The left ventricle is grossly normal size. * There is normal left ventricular wall thickness. * Ejection Fraction = 60-65%. * No regional wall motion abnormalities noted. Right Ventricle * The right ventricle is grossly normal size. * The right ventricular systolic function is normal as assessed by tricuspid annular plane systolic excursion (TAPSE) (normal >1.5 cm). Atria * The left atrial size is normal. * Right atrial size is normal. * No ASD detected; PFO is not assessed. Mitral Valve * The mitral valve is grossly normal. * There is no mitral valve stenosis. * There is trace mitral regurgitation. Tricuspid Valve * The tricuspid valve is not well visualized, but is grossly normal. * No tricuspid regurgitation. Aortic Valve * The aortic valve is normal in structure and function. * The aortic valve is trileaflet. * No hemodynamically significant valvular aortic stenosis. * There is no significant aortic regurgitation. Pulmonic Valve * The pulmonary valve is inadequately visualized, but the Doppler data is adequate for interpretation. * There is no pulmonic valvular stenosis. * There is no pulmonic valvular regurgitation. Great Vessels * The aortic root and proximal ascending aorta are normal sized. * No Doppler or imaging evidence of an aortic coarctation. Pericardium/Pleural * There is no pericardial effusion. Great Vessels * Normal inferior vena cava size and collapsability with sniff indicates a normal right atrial pressure of 3 mmHg MMode 2D Measurements and Calculations IVSd 1.0 cm IVSs 1.3 cm LVIDd 4.4 cm LVIDs 2.9 cm LVPWd 0.86 cm LVPWs 1.6 cm IVS/LVPW 1.2 FS 34.2 % EDV(Teich) 86.7 ml ESV(Teich) 31.6 ml EF(Teich) 63.5 % EDV(cubed) 83.9 ml ESV(cubed) 23.9 ml EF(cubed) 71.6 % % IVS thick 29.1 % % LVPW thick 92.4 % LV mass(C)d 136.6 grams LV mass(C)dI 83.2 grams/m\S\2 LV mass(C)s 149.2 grams LV mass(C)sI 90.9 grams/m\S\2 SV(Teich) 55.0 ml SI(Teich) 33.5 ml/m\S\2 SV(cubed) 60.1 ml SI(cubed) 36.6 ml/m\S\2 ACS 1.8 cm LA dimension 2.5 cm asc Aorta Diam 2.5 cm LVOT diam 1.9 cm LVOT area 2.8 cm\S\2 LVAd ap4 31.9 cm\S\2 LVLd ap4 8.5 cm EDV(MOD-sp4) 99.0 ml EDV(sp4-el) 101.0 ml LVAs ap4 16.0 cm\S\2 LVLs ap4 6.5 cm ESV(MOD-sp4) 34.6 ml ESV(sp4-el) 33.6 ml EF(MOD-sp4) 65.1 % EF(sp4-el) 66.7 % LVAd ap2 35.4 cm\S\2 LVLd ap2 8.9 cm EDV(MOD-sp2) 118.0 ml EDV(sp2-el) 119.2 ml LVAs ap2 19.7 cm\S\2 LVLs ap2 7.5 cm ESV(MOD-sp2) 43.9 ml ESV(sp2-el) 43.9 ml EF(MOD-sp2) 62.8 % EF(sp2-el) 63.1 % LVLd %diff 4.4 % EDV(MOD-bp) 108.1 ml LVLs %diff 13.2 % ESV(MOD-bp) 41.5 ml EF(MOD-bp) 61.6 % SV(MOD-sp4) 64.5 ml SI(MOD-sp4) 39.3 ml/m\S\2 SV(MOD-sp2) 74.1 ml SI(MOD-sp2) 45.2 ml/m\S\2 SV(MOD-bp) 66.6 ml SI(MOD-bp) 40.6 ml/m\S\2 SV(sp4-el) 67.4 ml SI(sp4-el) 41.1 ml/m\S\2 SV(sp2-el) 75.2 ml SI(sp2-el) 45.8 ml/m\S\2 Doppler Measurements and Calculations MV E max mey 81.4 cm/sec MV A max mey 51.8 cm/sec MV E/A 1.6 MV dec time 0.22 sec Ao V2 max 117.7 cm/sec Ao max PG 5.5 mmHg Ao max PG (full) 2.3 mmHg SONYA(V,A) 2.2 cm\S\2 SONYA(V,D) 2.2 cm\S\2 LV V1 max PG 3.3 mmHg LV V1 max 90.2 cm/sec PA V2 max 78.2 cm/sec PA max PG 2.4 mmHg
[2016-07-25 14:53] LABS: LYME DISEASE AB IGG NEG (NEG); LYME DISEASE AB IGM NEG (NEG)
[2016-07-25] MEDS: CEFTRIAXONE SOD INJ 1,000 MG in DEXTROSE 5% 50ML 50 ML IV SCH (16:21)
[2016-07-25] MEDS ORDERED: AZITHROMYCIN IV 250 MG in DEXTROSE 5% 250ML 250 ML IV SCH (18:00)
[2016-07-25] MEDS: COLCHICINE 0.6 MG TAB PO SCH (20:33)
[2016-07-26] MEDS: HYDROCODONE/HOMATROPINE SYRUP 5MG/1.5MG 5ML UDP PO PRN ×4 (03:27→17:58)
[2016-07-26 03:40] VITALS: BP 105/68; PULSE 96; TEMP 36.9; O2SAT 98
[2016-07-26] MEDS: SODIUM CHLOR 0.45% + 20MEQ KCL 1,000 ML IV SCH ×3 (04:30→15:37)
[2016-07-26 06:20] LABS: BASO % 0.4 %; BASO ABS # 0.02 K/uL (0-0.2); COMPLETE YES; EOS % 6.1 %; HEMATOCRIT 34.1 % (37-47); IG% 0.4 %; LYMPH % 30.7 %; LYMPH ABS # 1.41 K/uL (1.2-3.4); MEAN CELL VOLUME 88.8 fL (80-100); MEAN CORPUSCULAR HEMOGLOBIN 28.9 pg (25-34); MEAN CORPUSCULAR HGB CONC 32.6 g/dl (32-36); MEAN PLATELET VOLUME 9.4 fL (7.4-10.4); MONO % 12.9 %; NEUT % 49.5 %; PLATELET COUNT 228 K/uL (130-400); RED BLOOD COUNT 3.84 M/uL (4.2-5.4); WHITE BLOOD COUNT 4.59 K/uL (4.8-10.8)
[2016-07-26 07:00] LABS: BLOOD UREA NITROGEN 4 mg/dl (7-18); BUN/CREATININE RATIO 7.7 (10-20); CALCIUM 8.5 mg/dl (8.5-10.1); CARBON DIOXIDE 27 mmol/L (21-32); CHLORIDE 104 mmol/L (98-107); CREATININE 0.57 mg/dl (0.60-1.20); GLUCOSE 82 mg/dl (70-99); POTASSIUM 3.9 mmol/L (3.5-5.1); SODIUM 139 mmol/L (136-145)
[2016-07-26 07:06] LABS: CHOLESTEROL 142 mg/dl (0-200); CHOLESTEROL/HDL RATIO 3.1; HDL CHOLESTEROL 46 mg/dl; LDL CHOLESTEROL CALCULATED 62 mg/dl; TRIGLYCERIDES 168 mg/dl (0-150); VERY LOW DENSITY LIPOPROT CALC 34 mg/dl
[2016-07-26 07:53] VITALS: BP 110/61; PULSE 79; TEMP 36.7; O2SAT 99
[2016-07-26] MEDS: ACETAMINOPHEN 325 MG TAB PO PRN (08:22)
[2016-07-26] MEDS: LORATADINE 10 MG TAB PO SCH (08:23)
[2016-07-26] MEDS: COLCHICINE 0.6 MG TAB PO SCH (08:23)
[2016-07-26] MEDS: DROSPIRENONE-ETHINYL ESTRADIOL 1 TAB TAB PO SCH (08:24)
[2016-07-26] MEDS ORDERED: ENOXAPARIN 40 MG/0.4 ML SYR SQ SCH (09:00)
--- NOTE | 2016-07-26 09:04 | Cardiology Follow-Up ---
Subjective Date of Service: July 26, 2016. Pt evaluation today including: conversation w/ patient, physical exam, lab review, review of studies, review of inpatient medication list, conversation w/ attending History of Present Illness This is a very pleasant 21-year-old woman who presented on 07/24/2016 with right -sided chest discomfort and a persistent cough. She describes a cough being present for 4-6 weeks, nonproductive, felt to be a viral bronchitis in the past. She was therefore not been on antibiotic therapy. She developed right sided chest discomfort on 07/24/2016 in the morning, she describes it as being exacerbated by the coughing, being pleuritic in that it hurts when she takes a deep breath but also hurts when she moves. It is not exertional, prior to that morning she never had chest discomfort. She has not had lightheadedness, dizziness or palpitations. In the emergency room she had some abnormal tests which included a CT scan showing a left sided pneumonia, which also seems visible on her chest x-ray. The CT scan was negative for pulmonary embolism. She also had cardiac enzyme abnormalities, her troponin on arrival to emergency room was 0.43, however around midnight it was 1.84 and the next morning was 5.44. Her electrocardiogram on arrival has some minor abnormalities in the precordial leads which can be normal for her age, the next morning the electrocardiogram looked slightly different but not abnormal. There may be a little bit of inferior ST elevation which also can be normal for age. Her troponin continued to rise on 07/25/2016, I added colchicine 0.6 mg twice a day on the morning of 07/25/2016 in case the chest discomfort represents referred pain from pericarditis. This morning she has continues to have a cough, and continued to have the right sided chest discomfort exacerbated by the cough and movement. No other complaints. Social History Smoking Status: Never Smoker History of Alcohol Use: Yes (liquor, beer, wine 1-3 times /week) Review of Systems Respiratory: + cough, + shortness of breath (due to the pain . Shallow breathing), + sputum (scant), No wheezing Cardiac: + chest pain (under right breast) Medications Cardiovascular: Item Value Date Time Enoxaparin Sodium 40 mg 07/26/16 0900 (Lovenox Inj) QAM/SQ 07/26/16 0823 Colchicine 0.6 mg 07/25/16 2100 (Colchicine Tab) BID/PO 07/26/16 0823 Objective Vital Signs Past 12 Hours Date Time Temp Pulse Resp B/P Pulse Ox O2 Delivery O2 Flow Rate FiO2 07/26/16 08:05 Room Air 07/26/16 07:53 36.7 79 18 110/61 99 07/26/16 03:40 36.9 96 17 105/68 98 07/25/16 23:45 37.1 87 17 113/70 99 07/25/16 23:24 Room Air Last Recorded Weight-Kilograms: 63.300 Intake & Output 8-Hour Column 07/25/16 07/26/16 07/26/16 16:00 00:00 08:00 Intake Total 1194 ml 1854 ml 1014 ml Output Total 600 ml 1000 ml 1100 ml Balance 594 ml 854 ml -86 ml 24-Hour Column 07/26/16 08:00 Intake Total 4062 ml Output Total 2700 ml Balance 1362 ml Physical Exam Constitutional: General Apperance: heathly-appearing Level of Distress: NAD Lungs: Respiratory effort: no dyspnea, good air movement Auscultation: breath sounds normal, no wheezing Cardiovascular: Heart Auscultation: RRR, no murmurs, no rubs, no gallops Peripheral Pulses: Bruits: none appreciated Extremities: no edema Data Laboratory Results: Last 24 Hours Test 07/25/16 11:25 07/25/16 21:08 07/26/16 05:55 Lyme Disease IgG Antibody NEG Lyme Disease IgM Antibody NEG Troponin I 5.970 ng/ml 4.800 ng/ml White Blood Count 4.59 K/uL Red Blood Count 3.84 M/uL Hemoglobin 11.1 g/dL Hematocrit 34.1 % Mean Corpuscular Volume 88.8 fL Mean Corpuscular Hemoglobin 28.9 pg Mean Corpuscular Hemoglobin Concent 32.6 g/dl Platelet Count 228 K/uL Mean Platelet Volume 9.4 fL Neutrophils (%) (Auto) 49.5 % Lymphocytes (%) (Auto) 30.7 % Monocytes (%) (Auto) 12.9 % Eosinophils (%) (Auto) 6.1 % Basophils (%) (Auto) 0.4 % Neutrophils # (Auto) 2.27 K/uL Lymphocytes # (Auto) 1.41 K/uL Monocytes # (Auto) 0.59 K/uL Eosinophils # (Auto) 0.28 K/uL Basophils # (Auto) 0.02 K/uL RDW Standard Deviation 40.5 fL RDW Coefficient of Variation 12.5 % Immature Granulocyte % (Auto) 0.4 % Immature Granulocyte # (Auto) 0.02 K/uL Sodium Level 139 mmol/L Potassium Level 3.9 mmol/L Chloride Level 104 mmol/L Carbon Dioxide Level 27 mmol/L Anion Gap 8.0 mmol/L Blood Urea Nitrogen 4 mg/dl Creatinine 0.57 mg/dl Est Creatinine Clear Calc Drug Dose 130.9 ml/min Estimated GFR () > 150.0 Estimated GFR (Non- 131.6 BUN/Creatinine Ratio 7.7 Random Glucose 82 mg/dl Calcium Level 8.5 mg/dl Triglycerides Level 168 mg/dl Cholesterol Level 142 mg/dl HDL Cholesterol 46 mg/dl LDL Cholesterol, Calculated 62 mg/dl VLDL Cholesterol, Calculated 34 mg/dl Cholesterol/HDL Ratio 3.1 EKG: This morning her electrocardiogram is normal Telemetry reviewed: Sinus rhythm with no ectopy Assessment and Plan #1. Chest discomfort: The chest discomfort is very atypical for cardiac pain, it is right sided and her pneumonia is left sided. It may well be musculoskeletal from the coughing, on the other hand it did occur coincidentally with the onset of a rising troponin. It could still be referred pain from myocarditis or pericarditis. I would recommend continuing colchicine for 3 months. #2. Elevated troponin: Her troponin rising since admission suggests that there is some ongoing cardiac inflammatory process which started recently, not with her cough 4-6 weeks ago. It may be that the chest discomfort is due to myocarditis or pericarditis although there are other possibilities. Her troponin is now decreasing. I think it is worth treating with colchicine, to see at least if it helps with her symptomatology in case it is referred pain. I would continue that for 90 days. With no echocardiographic changes I'm going to hold off on any other medications, she has no evidence of clinical cardiomyopathy. #3. Pneumonia: It is possible that she has had this pneumonia for some time although it seems a little bit unusual. I don't see how this can be connected to her cardiac enzyme rise, unless it is a viral myocarditis associated with a viral myocarditis as well. In any case that would not alter the cardiac treatment. I will arrange follow-up in one month in the office. Thank you for allowing me to participate in her care.
[2016-07-26 11:55] VITALS: BP 96/62; PULSE 66; TEMP 36.9; O2SAT 96
[2016-07-26 15:25] VITALS: BP 103/68; PULSE 80; TEMP 36.6; O2SAT 98
[2016-07-26 16:00] VITALS: O2SAT 97
[2016-07-26] MEDS ORDERED: IBUPROFEN 600 MG TAB PO ONE (16:30)
[2016-07-26] MEDS ORDERED: LEVO1TAB35 PO (17:30)
[2016-07-26] MEDS ORDERED: IBUP-1450 PO (17:30)
[2016-07-26] MEDS ORDERED: CLC6 PO (17:30)
[2016-07-26] MEDS ORDERED: HYDR5SYP11 PO (17:30)
--- NOTE | 2016-07-26 17:47 | Discharge Instructions ---
Discharge Instructions Date of Service July 26, 2016. Admission Reason for Admission: Elevated Troponin, Pneumonia Discharge Discharge Diagnosis / Problem: Pneumonia Discharge Goals Goal(s): Decrease discomfort, Improve function Activity Recommendations Activity Limitations: resume your previous activity . Instructions / Follow-Up Instructions / Follow-Up You were admitted with a cough and chest pain which had started about a month ago and had worsened in the preceding days. You were found to have a pneumonia in your left lung and also had increase in your troponin ( heart enzymes ) You were seen by cardiology who felt it could be related to myocarditis. Recommendations: Community-acquired pneumonia: - Continue to use Levaquin 750 mg daily for 5 more days - Cough suppression with Hycodan 5 ml every 4 -6 hours as needed , Tessalon Perles as prescribed . You might need to get a chest Xray in 4-6 weeks to confirm resolution of your Pneumonia Myocarditis/pericarditis - Continue colchicine 0.6 mg twice daily for 90 days - Please follow up with cardiology within 1 month. Right-sided rib pain: - Use Motrin 600 mg every 6 hours as needed for pain Please follow up with Dr. Cook in about a month. Please follow up with PCP in about a week Current Hospital Diet Patient's current hospital diet: Regular Diet Discharge Diet Recommended Diet: Regular Diet Pending Studies Studies pending at discharge: no Laboratory Results Lipid Panel Test 07/26/16 05:55 Range/Units Triglycerides Level 168 H 0-150 mg/dl Cholesterol Level 142 0-200 mg/dl HDL Cholesterol 46 mg/dl Cholesterol/HDL Ratio 3.1 LDL Cholesterol, Calculated 62 mg/dl Medical Emergencies . Who to Call and When: Medical Emergencies: If at any time you feel your situation is an emergency, please call 911 immediately. . Non-Emergent Contact Non-Emergency issues call your: Primary Care Provider . . "Provider Documentation" section prepared by Reva Hung. . Inseminator Recommendations Inseminator Recommendations: Colchicine 0.6 mg twice daily for 90 days. Follow up in [address] Cook. VTE Core Measure Inpt VTE Proph given/why not?: Enoxaparin (Lovenox)SQ Resident Tracking Resident Involvement: Resident Care Provided Care Provided: Adult Hospital Medicine
--- NOTE | 2016-07-26 17:50 | Discharge Summary ---
Discharge Summary Date of Service July 26, 2016. (Reva Hung MD) Discharge Summary Admission Date: July 24, 2016 at 18:45 Discharge Date: July 26, 2016 Discharge Disposition: Home Principal Diagnosis: Pneumonia. Myocarditis/elevated Troponins Problems/Secondary Diagnoses: Costochondritis Myocarditis/Elevated Troponin (1) PCOS (polycystic ovarian syndrome) Status: Chronic Consultations: Cardiology (Reva Hung MD) Medication Reconciliation New Medications: Hydrocodone W/ Homatropine (Hycodan 5/1.5MG 5 Ml) 1 Syp Syp 5 ML PO Q6H PRN for Cough for 9 Days, #180 ML Ibuprofen (Motrin) 600 Mg Tab 600 MG PO Q6H PRN for Pain for 7 Days, #28 TAB TAKE WITH FOOD Levofloxacin (Levaquin) 750 Mg Tab 750 MG PO DAILY for 5 Days, #5 TAB Colchicine (Colcrys) 0.6 Mg Tab 0.6 MG PO BID for 90 Days, #180 TAB Continued Medications: Benzonatate (Tessalon Perles) 100 Mg Cap 100-200 MG PO TID PRN for Cough Control Pills ( Control Pills) Tab 1 TAB PO DAILY Loratadine (Claritin) 10 Mg Tab 10 MG PO DAILY Discharge Exam Coughing is improved. No fevers overnight, continues to complain of right- sided rib pain. Denies any palpitations or shortness of breath Review of Systems: Constitutional: No chills, No fever Eyes: No worsening of vision ENT: No hearing loss Respiratory: No cough, No sputum Cardiovascular: No chest pain Abdomen: No nausea, No pain Musculoskeletal: No joint pain Genitourinary - Female: No dysuria Neurologic: No memory loss, No paralysis Psychiatric: No depression symptoms Endocrine: No fatigue Physical Exam: General Appearance: WD/WN, no apparent distress Eyes: normal inspection ENT: normal ENT inspection, hearing grossly normal Neck: supple Respiratory/Chest: chest non-tender, lungs clear Cardiovascular: regular rate, rhythm, no edema Abdomen / GI: normal bowel sounds, non tender, soft Neurologic/Psychiatric: alert, normal mood/affect, oriented x 3 Skin: normal color (Reva Hung MD) Hospital Course 21-year-old female with no significant past medical history presented with complaints of a cough and right-sided rib pain that started about a month ago. Was treated as a bronchitis as an outpatient . Chest x-ray and chest CT revealed a left-sided lower lobe pneumonia and she was also noted to have an elevated troponin though she did not have significant changes on her EKG. Community-acquired pneumonia: - CXR: 07/24. Left lower lobe airspace opacities. In the proper clinical setting, this is consistent with a pneumonia - Chest CT:07/24: IMPRESSION: 1. No evidence of acute pulmonary embolism 2. Dense left lower lobe pulmonary consolidation suspicious for pneumonia. 3. Mild left hilar mikaela enlargement, likely reactive -Was initially started on Rocephin and azithromycin, was switched to Levaquin to be continued for 5 days - Cough suppression with Hycodan, Tessalon Perles -Will likely need a repeat chest x-ray in 4-6 weeks for resolution Elevated troponins:? Myocarditis/pericarditis though no EKG changes - Troponin on presentation 0.433-->1.84-->5.4-->5.9-->4.8 - Echo : * 1. Normal LV size and wall thickness. * 2. Normal LV systolic function. LVEF 60-65%. No regional wall motion abnormalities. * 3. Normal RV size and function. * 4. No significant valvular abnormalities. - Lyme serology negative - Cardiology was consulted and she was started on colchicine 0.6 mg twice daily and recommended to continue using it for 90 days Follow-up with cardiology in 1 month Right-sided rib pain: Referred pain versus costochondritis -Recommend she use ibuprofen 600 mg every 6 hours as needed -May try external application of heat Follow-up with PCP in about a week Follow-up with cardiology in 1 month Total Time Spent: Greater than 30 minutes This includes examination of the patient, discharge planning, medication reconciliation, and communication with other providers. (Reva Hung MD) Discharge Instructions Please refer to the electronic Patient Visit Report (Discharge Instructions) for additional information. (Reva Hung MD) Follow-Up Follow-up with PCP in about a week Follow-up with cardiology in 1 month (Reva Hung MD) Additional Copies To Sixto Agudelo M.D.; [facility] Resident Tracking Resident Involvement: Resident Care Provided Care Provided: [facility] (Reva Hung MD) Reviewed: Pt Seen/Exam by Me (Stacey Sarmiento MD) History Resident Physician Supervision Note: I interviewed and examined the patient. Discussed with Dr. Hung and agree with findings and plan as documented in the note. Any exceptions or clarifications are listed here: Pt still coughing but improving, still with right inferior rib pain with any movement or with cough and deep inspiration. Troponin trended back downward Vitals reviewed NAD, AAOx3 RRR no mgr +decreased BS at left lower lung field but otherwise CTAB Abd soft NT ND +BS Ext no edema SKin no rashes 21 yo female with LLL CAP, right rib pain MSK in nature from coughing. Also with elevated troponin most likely secondary to myocarditis. Received rocephin and azithro, antitussives which also help with pain. Switch to po Levaquin for discharge to finish out 7 day course ECHO reviewed and case d/w Cardiology -Cardiology recommends colchicine for treatment for 90 days and will f/u with her in 1 month -f/u CXR in 4 weeks to ensure resolution of dense consolidation-this was d/w patient prior to discharge Documented By: Stacey Sarmiento (Stacey Sarmiento MD)
[2016-07-26] MEDS: CEFTRIAXONE SOD INJ 1,000 MG in DEXTROSE 5% 50ML 50 ML IV SCH (17:56)
[2016-07-26] MEDS ORDERED: AZITHROMYCIN 250 MG TAB PO SCH (18:00)
[2016-07-26 18:28] VITALS: BP 103/68; PULSE 80; TEMP 36.6; O2SAT 97
== END 2016-07-26 19:12 | disposition home or self-care (01) | DRG 314 ==
LOC: ENRESERVTM → ENRESERVDT → C.EDB 14:38 → C.2T 18:45
PROVIDERS: ADMIT Family Medicine; ATTEND Family Medicine
DX: I51.4 Myocarditis, unspecified (principal); J18.9 Pneumonia, unspecified organism; M54.9 Dorsalgia, unspecified; G89.29 Other chronic pain; R79.89 Other specified abnormal findings of blood chemistry; M94.0 Chondrocostal junction syndrome [Tietze]; E28.2 Polycystic ovarian syndrome; Z79.899 Other long term (current) drug therapy; R07.89 Other chest pain; Z79.3 Long term (current) use of hormonal contraceptives

== ENCOUNTER 2017-07-05 09:26 | Emergency (ER) | payer BC ==
[~2017-07-05] VITALS: Ht 160 cm; Wt 50.9 kg
[~2017-07-05 09:26] MED LIST: BCPILLS PO; BENZ-54 PO; CLC6 PO; CLR10 PO
[2017-07-05 09:29] VITALS: TEMP 36.7; Ht 160 cm; Wt 50.9 kg
[2017-07-05] MEDS ORDERED: AMPH20TA2 PO (09:39)
[2017-07-05] MEDS ORDERED: LISD40CA PO (09:39)
--- NOTE | 2017-07-05 10:34 | DIAGNOSTIC IMAGING REPORT ---
L FINGER(S) MIN 2 VIEWS ROUTINE CLINICAL HISTORY: r/p fracture left ring finger s/p trauma trauma. Pain. COMPARISON: None. DISCUSSION: The bones and joint spaces appear intact. There is no evidence of fracture, dislocation or bony disease. Mild soft tissue edema IMPRESSION: Negative study. Mild soft tissue edema. The above report was generated using voice recognition software. It may contain grammatical, syntax or spelling errors. Electronically signed by: Renato Early M.D. 07/05/2017 10:33 AM Dictated Date/Time: 07/05/2017 10:32 AM
--- NOTE | 2017-07-05 11:17 | EMERGENCY ROOM VISIT NOTE ---
History First contact with patient: 09:33 Chief Complaint: FINGER PAIN Stated Complaint: BRUISED/SMASHED RING FINGER ON LEFT HAND History of Present Illness The patient is a 22 year old female who presents to the Emergency Room via private vehicle with complaints of "bruise/smashed ring finger on left hand". The patient states that earlier today she was lifting weights in the gym when she accidentally pinched her left fourth digit with weights. This occurred around 6:45 AM today. There has been no numbness or tingling however there is pain when she goes to move the left fourth digit. She is right-handed. She rates the pain as a 4/10 with movement and 0/10 at rest. Review of Systems A complete 6-point Review of Systems was discussed with the patient, with pertinent positives and negatives listed in the History of Present Illness. All remaining Review of Systems questions can be considered negative unless otherwise specified. Past Medical/Surgical History Medical Problems: (1) Elevated troponin (2) PCOS (polycystic ovarian syndrome) (3) Pneumonia Social History Smoking Status: Never Smoker Patient is a [employer] student and lives locally. Current/Historical Medications Scheduled Amphetamine-Dextroamphetamine 20MG (Adderall 20MG), 20 MG PO DAILY Lisdexamfetamine Dimesylate (Vyvanse), 40 MG PO DAILY Loratadine (Claritin), 10 MG PO DAILY Physical Exam Vital Signs Date Time Temp Pulse Resp B/P (MAP) Pulse Ox O2 Delivery O2 Flow Rate FiO2 07/05/17 11:25 70 18 112/62 98 07/05/17 09:29 36.7 74 18 112/68 99 Room Air Physical Exam VITAL SIGNS - Vital signs and nursing notes were reviewed. Stable. Afebrile. GENERAL -22-year-old female appearing her stated age who is in no acute distress. Communicates well with provider and answers questions appropriately. SKIN - Without rashes. No meningeal or petechial rash. There is slight erythema and edema overlying the mid aspect of the left fourth digit. The skin is intact. Excellent capillary refill distally. EXTREMITIES -the left fourth digit is tender to palpation at the PIP joint distally to the DIP joint. There is no proximal or distal tenderness to this stated region. There is no hand tenderness. Decreased range of motion secondary to pain. Again, good capillary refill. Medical Decision & Procedures ER Provider Diagnostic Interpretation: L FINGER(S) MIN 2 VIEWS ROUTINE CLINICAL HISTORY: r/p fracture left ring finger s/p trauma trauma. Pain. COMPARISON: None. DISCUSSION: The bones and joint spaces appear intact. There is no evidence of fracture, dislocation or bony disease. Mild soft tissue edema IMPRESSION: Negative study. Mild soft tissue edema. The above report was generated using voice recognition software. It may contain grammatical, syntax or spelling errors. Electronically signed by: Renato Early M.D. 07/05/2017 10:33 AM Dictated Date/Time: 07/05/2017 10:32 AM Medical Decision Patient was seen and evaluated as above in room C 10. Review was performed of nursing notes and vital signs. She presents today with left fourth digit pain. No evidence of deformity or open fracture. The skin is intact. After obtaining a thorough history and physical examination and x-ray was obtained of the patient's left fourth digit. This was reviewed by myself with the patient as well as the radiologist with no acute fracture noted. It is likely she is experiencing a soft tissue contusion. She will be splinted in the event that there is a small underlying occult fracture. Patient was educated upon this risk. She is to continue with ice and [id number] medication. The patient was educated upon management, had questions answered prior to discharge , and was discharged home in good condition. In the evaluation and treatment of this patient, the following differential diagnoses were considered: Finger Fracture, Finger Dislocation, Finger Sprain, Finger Contusion, Jersey Finger, or Mallet Finger. Impression Primary Impression: Injury, finger Departure Information Dispostion Home / Self-Care Condition GOOD Referrals [facility] (PCP) Dylon Malone D.O. Patient Instructions My [facility] Additional Instructions You have been treated in the Emergency Department for L 4th digit pain. Xray is negative. If pain persists beyond 7-10 days please call the orthopedic individual noted above to have repeat x-rays. Please ice and elevate. Please not apply the ice directly to the finger, rather place a towel or washcloth between this. For pain control, you can use the following [id number] medicines (if >12 yo): - Regular strength (325mg/tab) Tylenol (acetaminophen) 2 tabs every 4-6 hours as needed. Do not exceed 12 tablets in a 24 hour period. Avoid taking more than 3 grams (3000 mg) of Tylenol per day. This includes any other sources of acetaminophen you may take on a regular basis. - Regular strength (200 mg/tab) Advil (ibuprofen) 1-2 tabs every 4-6 hours as needed. Do not exceed a dose of 3200 mg per day. If this is a recent injury (<24 hrs), ice can be applied to the area of pain for the first 3 days to help decrease pain and inflammation. Return to the Emergency Department if your current symptoms worsen despite treatment course outlined above, or if you develop any of the following symptoms : intractable pain despite aforementioned treatment course or new onset of numbness or tingling of the fingers.
[2017-07-05 11:25] VITALS: BP 112/62; PULSE 70; O2SAT 98
== END 2017-07-05 11:26 | disposition home or self-care (01) ==
LOC: C.EDB 09:28 → C.EDC 11:26
DX: M79.644 Pain in right finger(s) (principal); W23.0XXA Caught, crushed, jammed, or pinched between moving objects, initial encounter; E28.2 Polycystic ovarian syndrome